=== PATIENT | female | born 1965 | race Caucasian/White ===

== ENCOUNTER 2018-03-13 14:49 | Emergency (ER) | payer OTHER ==
[~2018-03-13] VITALS: Ht 157.5 cm; Wt 125.9 kg
[~2018-03-13 14:49] MED LIST: ADVAIR 500-501 EACH IH; ADVAIR 500/501 DISK IH; AMBIEN10 MG; ASPIRIN81 M1; BELSOMRA20 MG PO; CLINDAMYCIN HC300 MG PO; CLOBETASOL PROP60 GM TP; CLOBETASOL PROPIONAT; FLEXERIL10 MG; FLUTICASONE; GEODON40 MG PO; HYDROXYCHLOROQ200 MG; HYDROXYZINE HCL25 MG; IBUPROFEN800 MG; IBUPROFEN800 MG PO; KEFLEX500 MG PO; LAMICTAL100 MG PO; LASIX20 MG PO; LORAZEPAM0.5 MG PO; MOBIC7.5 MG PO; MULTIVITAMIN1 EAC2 PO; NASACORT AQ16.5 GM BOTH NARES; NEXIUM40 MG PO; NICOTINE PATCH1 EAC2 TD; OXYCODONE HCL15 MG PO; OXYCONTIN10 MG PO; OXYCONTIN15 MG PO; PHENERGAN; PHENTERMINE H37.5 MG PO; PHENTERMINE HCL30 MG; PROMETHAZINE HC25 M1 PO; PROVENTIL,2.5 MG/3 M IH; Percocet 10/325,Endo PO; REQUIP1 MG PO; SENOKOT,SENN1 TABLET PO; SPIRIVA1 INHALATI IH; SYNTHROID25 MCG PO; VENTOLIN HFA18 GM IH; VENTOLIN17 GM IH; ZANAFLEX4 MG PO; ZOCOR20 MG; ZOFRAN ODT4 MG PO; ZYVOX600 MG PO; [UNRECOGNIZED DRUG - OTHER]
[2018-03-13 15:36] LABS: HEMATOCRIT 43.7 % (36.0-46.0); MCH 30.2 PG (29.0-34.0); MCHC 34.3 G/DL (30.0-36.0); MCV 87.9 FL (83-99); PLATELET COUNT 268 K/uL (156-360); RBC DIS.WIDTH-CV 13.3 % (11.8-14.6); RBC DIS.WIDTH-SD 42.9 % (39-53); RED BLOOD COUNT 4.97 M/uL (3.80-5.20); WHITE BLOOD COUNT 10.5 K/uL (4.1-10.2)
[2018-03-13 15:50] LABS: CHLORIDE 104 mEq/L (99-109); POTASSIUM 4.1 mEq/L (3.7-5.4); SODIUM 142 mEq/L (136-147)
[2018-03-13 15:52] LABS: GLUCOSE 100 mg/dL (70-99)
[2018-03-13 15:56] LABS: CREATININE 0.8 mg/dL (0.6-1.3); GFR ESTIMATE (CALCULATED) > 59 mL/min/
[2018-03-13 15:57] LABS: UREA NITROGEN (BUN) 13 mg/dL (9-23)
[2018-03-13 15:58] LABS: TROP-I INTERPRETATION NEGATIVE; TROPONIN-I < 0.01 ng/mL (0.0-0.30)
[2018-03-13] MEDS ORDERED: DOXYCYCLINE HY100 MG PO (19:39)
[2018-03-13] MEDS ORDERED: PREDNISONE20 MG PO (19:41)
[2018-03-13] MEDS ORDERED: VENTOLIN HFA18 GM IH (19:41)
[2018-03-13 20:14] VITALS: BP 116/78
== END 2018-03-13 20:16 | disposition home or self-care (01) ==
LOC: EME 14:49
DX: J42 Unspecified chronic bronchitis (principal); J44.0 Chronic obstructive pulmonary disease with (acute) lower respiratory infection; K21.9 Gastro-esophageal reflux disease without esophagitis; E11.9 Type 2 diabetes mellitus without complications; I50.9 Heart failure, unspecified; F41.9 Anxiety disorder, unspecified; F17.200 Nicotine dependence, unspecified, uncomplicated; Z85.820 Personal history of malignant melanoma of skin; Z90.710 Acquired absence of both cervix and uterus; Z88.5 Allergy status to narcotic agent; Z88.6 Allergy status to analgesic agent; Z91.040 Latex allergy status
CPT/HCPCS: 71046; 80048; 83880; 84484; 85027; 85379; 93005; 94640; 99281; 99285; J1100

== ENCOUNTER 2018-04-11 14:11 | Inpatient (IN) | payer OTHER, BC ==
[~2018-04-11] VITALS: Ht 157.5 cm; Wt 125.4 kg
[~2018-04-11 14:11] MED LIST changes: +DOXYCYCLINE HY100 MG PO; +PREDNISONE20 MG PO
[2018-04-11 15:06] LABS: HEMATOCRIT 41.1 % (36.0-46.0); HEMOGLOBIN 14.2 G/DL (11.9-15.5); MCH 30.4 PG (29.0-34.0); MCHC 34.5 G/DL (30.0-36.0); PLATELET COUNT 230 K/uL (156-360); RBC DIS.WIDTH-CV 13.2 % (11.8-14.6); RBC DIS.WIDTH-SD 42.3 % (39-53); RED BLOOD COUNT 4.67 M/uL (3.80-5.20); WHITE BLOOD COUNT 13.5 K/uL (4.1-10.2)
[2018-04-11 15:16] LABS: CHLORIDE 106 mEq/L (99-109); POTASSIUM 3.2 mEq/L (3.7-5.4); SODIUM 140 mEq/L (136-147)
[2018-04-11 15:17] LABS: GLUCOSE 202 mg/dL (70-99)
[2018-04-11 15:21] LABS: CREATININE 0.8 mg/dL (0.6-1.3); GFR ESTIMATE (CALCULATED) > 59 mL/min/
[2018-04-11 15:22] LABS: UREA NITROGEN (BUN) 14 mg/dL (9-23)
[2018-04-11 16:08] LABS: TROP-I INTERPRETATION NEGATIVE; TROPONIN-I < 0.01 ng/mL (0.0-0.30)
[2018-04-11 17:33] LABS: TOTAL PROTEIN 7.1 g/dL (6.4-8.3)
[2018-04-11 17:35] LABS: TOTAL BILIRUBIN 0.4 mg/dL (0.0-1.0)
[2018-04-11 17:36] LABS: ALKALINE PHOSPHATASE 79 IU/L (3-129)
[2018-04-11 17:39] LABS: ALT (GPT) 20 IU/L (3-49); AST (GOT) 12 IU/L (2-34); DIRECT BILIRUBIN 0.2 mg/dL (0.0-0.3)
[2018-04-11 17:42] LABS: BASE EXCESS 0.5 mEq/L (-3 to +3); COMMENTS - BLOOD GASES A+C+; DEVICE RA; FI02 21 %; PCO2 44 mm Hg (35-45); PO2 94 mm Hg (80-100); SITE LR; pH 7.38 (7.35-7.45)
[2018-04-11 18:57] VITALS: BP 129/88
[2018-04-11 19:13] LABS: THYROTROPIN (TSH) 0.93 MIU/L (0.4-5.5)
[2018-04-11] MEDS ORDERED: VALIUM5 MG PO (20:10)
[2018-04-11] MEDS ORDERED: PREDNISONE10 MG PO (20:13)
[2018-04-11] MEDS ORDERED: AMBIEN5 MG PO (20:14)
[2018-04-11 23:46] VITALS: BP 127/63
[2018-04-12 05:53] LABS: HEMATOCRIT 41.9 % (36.0-46.0); HEMOGLOBIN 13.8 G/DL (11.9-15.5); MCH 29.7 PG (29.0-34.0); MCHC 32.9 G/DL (30.0-36.0); MCV 90.3 FL (83-99); PLATELET COUNT 218 K/uL (156-360); RBC DIS.WIDTH-CV 13.4 % (11.8-14.6); RBC DIS.WIDTH-SD 43.7 % (39-53); RED BLOOD COUNT 4.64 M/uL (3.80-5.20); WHITE BLOOD COUNT 9.7 K/uL (4.1-10.2)
[2018-04-12 06:19] LABS: CHLORIDE 106 MEQ/L (99-109); GFR ESTIMATE (CALCULATED) > 59 mL/min/; SODIUM 136 MEQ/L (136-147); UREA NITROGEN (BUN) 19 mg/dL (9-23)
[2018-04-12 06:25] LABS: GLUCOSE 360 mg/dL (70-99); POTASSIUM 5.4 MEQ/L (3.7-5.4)
[2018-04-12 07:40] VITALS: BP 148/73
[2018-04-12 09:37] LABS: HEMOGLOBIN A1c (GLYCOHEMOGLOB) 7.7 % (Below 5.7)
[2018-04-12 09:47] LABS: APPEARANCE CLEAR ((CLEAR)); BILIRUBIN NEGATIVE; BLOOD NEGATIVE; COLOR YELLOW ((YELLOW)); GLUCOSE (STRIP) >=500; KETONES NEGATIVE; LEUKOCYTES NEGATIVE; NITRITE NEGATIVE; PROTEIN (STRIP) 30; SPECIFIC GRAVITY 1.038 (1.000-1.030); UROBILINOGEN 0.2 MG/DL (0.2-1.0)
[2018-04-12 16:05] VITALS: BP 149/84
[2018-04-13 00:23] VITALS: BP 123/72
[2018-04-13 08:20] VITALS: BP 185/93
[2018-04-13 12:52] VITALS: BP 146/84
[2018-04-13 17:09] VITALS: BP 167/96
[2018-04-14 00:02] VITALS: BP 149/85
[2018-04-14 07:27] VITALS: BP 141/72
[2018-04-14 08:15] LABS: TROP-I INTERPRETATION NEGATIVE; TROPONIN-I < 0.01 ng/mL (0.0-0.30)
[2018-04-14 12:07] LABS: BASE EXCESS 5.2 mEq/L (-3 to +3); BICARBONATE 29.9 mEq/L (22-26); CARBOXY HGB 1.7 % (0-5); METHEMOGLOBIN 1.1 % (0-1.5); PCO2 43 mm Hg (35-45); pH 7.45 (7.35-7.45)
[2018-04-14 12:09] LABS: COMMENTS - BLOOD GASES A+C+; PO2 69 mm Hg (80-100); SITE RR
[2018-04-14 15:37] VITALS: BP 135/65
[2018-04-14 23:56] VITALS: BP 126/65
[2018-04-15 08:00] VITALS: BP 164/75
[2018-04-15] MEDS ORDERED: MUCINEX600 MG PO (09:35)
[2018-04-15] MEDS ORDERED: GLUCOPHAGE500 MG PO (09:50)
[2018-04-15] MEDS ORDERED: LISINOPRIL2.5 MG PO (09:50)
[2018-04-15] MEDS ORDERED: NICOTINE PATCH1 EAC2 TD (09:59)
[2018-04-15] MEDS ORDERED: PREDNISONE10 MG PO (15:57)
== END 2018-04-15 16:45 | disposition home or self-care (01) | DRG 191 ==
LOC: EME 14:11 → EDOF 16:41 → ENRESERV 16:42 → 5SOUTH 18:16 → ENPENDDIS 04-15 09:58 → 5SOUTH 04-15 16:45
PROVIDERS: Internal Medicine; Internal Medicine Cardiovascular Disease; Nurse Practitioner Family
PROC: 5A09357 Assistance with Respiratory Ventilation, Less than 24 Consecutive Hours, Continuous Positive Airway Pressure (ICD-10-PCS; principal; 2018-04-12)
DX: J44.0 Chronic obstructive pulmonary disease with (acute) lower respiratory infection (principal); Z68.43 Body mass index [BMI] 50.0-59.9, adult; J20.9 Acute bronchitis, unspecified; J44.1 Chronic obstructive pulmonary disease with (acute) exacerbation; E66.01 Morbid (severe) obesity due to excess calories; I11.0 Hypertensive heart disease with heart failure; E03.9 Hypothyroidism, unspecified; E11.9 Type 2 diabetes mellitus without complications; G47.33 Obstructive sleep apnea (adult) (pediatric); K21.9 Gastro-esophageal reflux disease without esophagitis; F17.210 Nicotine dependence, cigarettes, uncomplicated; I34.1 Nonrheumatic mitral (valve) prolapse; G89.29 Other chronic pain; I27.20 Pulmonary hypertension, unspecified; F41.9 Anxiety disorder, unspecified; I25.10 Atherosclerotic heart disease of native coronary artery without angina pectoris; I50.9 Heart failure, unspecified; Z85.820 Personal history of malignant melanoma of skin
CPT/HCPCS: 36600; 71046; 71250; 80048; 80076; 81003; 82803; 82948; 83036; 83880; 84443; 84484; 85027; 87086; 93005; 93306; 93971; 94640; 94640 76; 94660; 94760; 99202; 99281; 99285; J0696; J1650; J1815; J1940; J2930; J3475; J7512; Q0169